=== PATIENT | female | born 1970 | race Caucasian/White ===

== ENCOUNTER 2018-03-06 12:21 | Emergency (ER) | payer OTHER ==
[2018-03-06] MEDS: LIDOCAINE 1% (MDV) 20 ML INJ SC (13:16)
[2018-03-06] MEDS: DIPHTH/TET/ACEL PERTUSS (ADULT) 0.5 ML VIAL IM* (13:16)
== END 2018-03-06 14:46 | disposition home or self-care (01) ==
LOC: FTE 12:21
DX: S61.217A Laceration without foreign body of left little finger without damage to nail, initial encounter (principal); W26.8XXA Contact with other sharp object(s), not elsewhere classified, initial encounter; Y92.9 Unspecified place or not applicable; Z23 Encounter for immunization
CPT/HCPCS: 12001; 73140; 90471; 90715; 99283-25

== ENCOUNTER 2018-03-09 17:02 | Emergency (ER) | payer OTHER | END 2018-03-09 18:24 | disposition home or self-care (01) | LOC: FTE 17:02 | DX: S61.217D Laceration without foreign body of left little finger without damage to nail, subsequent encounter (principal); F17.210 Nicotine dependence, cigarettes, uncomplicated; X58.XXXD Exposure to other specified factors, subsequent encounter | CPT/HCPCS: 99281; Z7502 ==